=== PATIENT | female | born 1940 | race Caucasian/White ===

== ENCOUNTER 2016-12-23 07:33 | Inpatient (IN) ==
--- NOTE | 2016-12-22 21:47 | Discharge Summary ---
<SadafDorota L - Last Filed: 12/22/16 21:45> Date of Encounter: 12/22/16 - Discharge Diagnosis (1) Left rotator cuff tear arthropathy Priority: Primary Status: Acute (2) Status post total replacement of left shoulder Priority: Primary Status: Acute (3) HTN (hypertension) Priority: Secondary Status: Acute Qualifiers: Hypertension type: essential hypertension Qualified Code(s): I10 - Essential (primary) hypertension (4) DMII (diabetes mellitus, type 2) Priority: Secondary Status: Chronic Qualifiers: Diabetes mellitus complication status: without complication Diabetes mellitus assisted insulin use: unspecified assisted insulin use status Qualified Code(s): E11.9 - Type 2 diabetes mellitus without complications (5) HLD (hyperlipidemia) Priority: Secondary Status: Chronic Qualifiers: Hyperlipidemia type: pure hypercholesterolemia Qualified Code(s): E78.00 - Pure hypercholesterolemia, unspecified; E78.0 - Pure hypercholesterolemia - Discharge Medications Home Medications: Celecoxib [Celebrex] 200 mg PO DAILY 12/23/16 [History] Cholecalciferol (D-3) [Vitamin D] 2,000 unit PO DAILY 12/23/16 [History] Cyanocobalamin (B-12) [Vitamin B12] 1,000 mcg IM QMONTH 12/23/16 [History] Losartan/Hydrochlorothiazide [Hyzaar 100-25 Tablet] 1 each PO DAILY 12/23/16 [ History] Lovastatin 40 mg PO DAILY 12/23/16 [History] Metformin HCl [Fortamet] 500 mg PO BID 12/23/16 [History] Tramadol HCl [Ultram] 50 mg PO QID PRN 12/23/16 [History] Allergies/Adverse Reactions: Allergies No Known Allergies Allergy (Verified 12/23/16 08:03) Primary care physician: Daphnie Bundy, - Patient Status Disposition: Home Health Service Condition: Good - Discharge Instructions Follow Up With: Daphnie Bundy MD [Primary Care Provider] - - Hospital Course Hospital course: Ms. Reynolds is a 76 year old female - Time Spent with Patient Total time spent providing and/or coordinating discharge services: <Jules Ayala - Last Filed: 12/24/16 06:52> Date of Encounter: 12/24/16 Time of Encounter: 06:51 - Discharge Diagnosis (1) Left rotator cuff tear arthropathy Priority: Primary Status: Chronic (2) Status post total replacement of left shoulder Priority: Primary Status: Acute (3) HTN (hypertension) Priority: Secondary Status: Chronic Qualifiers: Hypertension type: essential hypertension Qualified Code(s): I10 - Essential (primary) hypertension (4) HLD (hyperlipidemia) Priority: Secondary Status: Chronic Qualifiers: Hyperlipidemia type: pure hypercholesterolemia Qualified Code(s): E78.00 - Pure hypercholesterolemia, unspecified; E78.0 - Pure hypercholesterolemia Primary care physician: Daphnie Bundy, - Patient Status Functional capacity at discharge: independent ambulation Overall status at discharge: patient is progressing back to baseline - Hospital Course Hospital course: Ms. Reynolds is a 76 year old female Status post left total shoulder replacement The patient had an uneventful postoperative course. They received antibiotics and physical therapy and were discharged in stable condition. There will follow -up in the office in 2 weeks. - Time Spent with Patient Total time spent providing and/or coordinating discharge services:
--- NOTE | 2016-12-23 08:02 | History & Physical Report ---
Date of Encounter: 12/23/16 Time of Encounter: 08:01 24 Hour HP Update - Instructions Instructions: If the History and Physical is less than 30 days old and was completed prior to A.M. admission and or procedure and has NOT been updated on calendar day of procedure please complete this update prior to performing procedure. - Update Patient reports changes in Medical Condition: No Changes in examination, assessment, or condition: No Changes in Medication: No Preop tests/diagnostics Reviewed: Yes Surgery Remains Indicated: Yes Consent for Planned Operative Procedure(s) Verified: Yes - Pre-Operative Checklist Preoperative Checklist Indicated: No Prophylactic Antibiotic Ordered: Yes Is VTE Prophylaxis Indicated?: Yes
[2016-12-23] MEDS ORDERED: Lidocaine -MPF 1% 2 ML VIAL ID ONE (08:05)
[2016-12-23] MEDS ORDERED: CeFAZolin Pre 2,000 MG/100 ML 2,000 MG/100 ML BAG IVPB ONE (08:05)
[2016-12-23] MEDS ORDERED: Ringers Solution, Lactated 1,000 ML IVC SCH ×2 (08:15→11:38)
[2016-12-23] MEDS ORDERED: Famotidine 20 MG/2 ML VIAL IVP ONE (08:24)
--- NOTE | 2016-12-23 08:52 | Anesthesia Evaluation PreOp ---
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: Denies Any Significant HX Other Medical History: Diabetes Type II Anesthesia History: No Prior Anesthetic Complications : No Alcohol Use: none Drug use: none Medications and Allergies Celecoxib [Celebrex] 200 mg PO DAILY 12/23/16 [History] Cholecalciferol (D-3) [Vitamin D] 2,000 unit PO DAILY 12/23/16 [History] Losartan/Hydrochlorothiazide [Hyzaar 100-25 Tablet] 1 each PO DAILY 12/23/16 [ History] Lovastatin 40 mg PO ONCE 12/23/16 [History] Metformin HCl [Fortamet] 500 mg PO BIDWM 12/23/16 [History] Tramadol HCl [Ultram] 50 mg PO QID PRN 12/23/16 [History] Allergies No Known Allergies Allergy (Verified 12/23/16 08:03) - Meds/Allergy Pre-op Review Medications Reviewed: Yes Allergies Reviewed: Yes Beta Blockers on Current Med List: No Anesthesia Results - Labs Laboratory Tests 12/20/16 12/20/16 12:53 12:53 Hgb 12.7 Hct 40.5 Plt Count 259 Sodium 142 Potassium 4.2 BUN 16 Creatinine 1.29 H - Imaging EKG: report reviewed (SR) Additional studies: LVEF 60% Anesthesia Exam O2 Sat Height 1.5 m Height 1.5 m Weight 76.204 kg Weight 76.204 kg O2 Sat by Pulse Oximetry 93 Vital Signs Temp Pulse Resp BP Pulse Ox 98.3 F 77 18 138/70 93 12/23/16 07:55 12/23/16 07:55 12/23/16 07:55 12/23/16 07:55 12/23/16 07:55 Height: 4'11 Weight: 168 lbs NPO (# of Hours): MN Pain Scale: 0 - HEENT Pupil (Motor): Pupils equal, EOMI Mallampati: III Teeth: Edentulous Oral Opening: Less than or equal to 3 - HONING MACHINE SET UP OPERATOR TOOL LOC: Oriented, Confused HONING MACHINE SET UP OPERATOR TOOL Motor: Normal RUE, Normal LUE, Normal RLE, Normal LLE, Normal Face HONING MACHINE SET UP OPERATOR TOOL Sensory: Normal: RUE, LUE, RLE, LLE, Face - Cardiac Rhythm: Regular Murmur: None JVD: No Carotid Bruit: No - Pulmonary Breath Sounds: bilateral Clear Respiratory Effort: Symmetrical Anesthesia Assess/Plan ASA Score: 3 (HTN DM) Modified Riley Scale for Level of Consciousness: Cooperative, oriented, and tranquil Anesthetic Plan: General, Regional Monitoring Plan: Standard Monitors Recovery Plan: PACU (Discussed GA and RA, agrees toproceed)
[2016-12-23] MEDS ORDERED: Tetracaine/PF 20 MG/2 ML AMPUL ONE (09:02)
[2016-12-23] MEDS ORDERED: ROPIVACAINE HCL/PF 0.5% 30 ML VIAL ONE (09:02)
[2016-12-23] MEDS ORDERED: Acetaminophen IV 1,000 MG/100 ML INFUS..BTL ONE (09:03)
--- NOTE | 2016-12-23 09:22 | Anesthesia Procedures ---
Date of Encounter: 12/23/16 Time of Encounter: 09:10 Procedures: Anesthesia - Nerve Block Procedure Date: 12/23/16 Time: 09:10 Allergies/Adv Reactions: nka Pre-op Diagnosis: left shoulder arthropathy Surgical Procedure: left total shoulder reverse Checklist: Correct Patient Identifier, Correct procedure, History checked (time out with Dr Landis) Correct side: Left Blood Thinner: No Monitor Applied: EKG, BP, Pulse Oximetry Supplemental Oxygen via Nasal Cannula (L/min): 2 Sedation: Versed (mg): 1 Sedation: Fentanyl (mcg): 50 Indication: Post Op Analgesia Pre-op Neuro Deficits: No Block Type: Supraclavicular Catheter placed: No Sterile Technique: Yes Ultrasound used: Yes Anatomy identified: Yes Visual spread of Local: Yes Neuro Stimulation: No Blood on Needle Aspiration: No Smooth Injection of Local: Yes Prep: Chlorhexadine Needle: 22 x 50 mm Stimuplex Local: 0.25% Bupivicaine w/Clonidine 20 mcg/cc (20 ml used for supracervical, and biceps), Ropivacaine (0.5 % 30 ml with 20 mg tetracaine for supraclavicular) Volume (cc): 50 Number of Attempts: 1 Complications: None/effective block Vitals: 3 Vital Signs Time 0910 0915 BP 170/103 158/91 Pulse 71 71 Resp 16 14 O2 Sat 97 97
[2016-12-23] MEDS ORDERED: *HR* Propofol 200 MG/20 ML VIAL IVP ONE (09:31)
[2016-12-23] MEDS ORDERED: Dexamethasone 4 MG/ML VIAL ONE (09:31)
[2016-12-23] MEDS ORDERED: *HR* FentaNYL (PF) 100 MCG/2 ML VIAL ONE (09:31)
[2016-12-23] MEDS ORDERED: Lidocaine -MPF 2% 2 ML VIAL ONE (09:31)
[2016-12-23] MEDS ORDERED: Lidocaine -MPF 4% 5 ML AMPUL ONE (09:31)
[2016-12-23] MEDS ORDERED: *HR* Midazolam HCl 2 MG/2 ML VIAL ONE (09:31)
[2016-12-23] MEDS ORDERED: *HR* Labetalol 20 MG/4 ML SYRINGE IVP PRN (09:32)
[2016-12-23] MEDS ORDERED: Ondansetron 4 MG/2 ML VIAL IVP ONE (09:32)
[2016-12-23] MEDS ORDERED: *HR* HYDROmorphone (PF) 1 MG/ML SYRINGE IVP PRN ×2 (09:32→11:38)
--- NOTE | 2016-12-23 10:33 | Orthopedic Operative Note ---
Date of procedure: 12/23/16 Pre-op diagnosis: Left shoulder cuff tear arthropathy Post-op diagnosis: same Procedure: Procedure: Total Shoulder Replacment Reverse, left Estimated blood loss: 100 cc Hardware: Metal and polyethylene replacement: Arthrex small glenoid baseplate, 2 4.5 screws. 1 6.5 screw, 36+4 glenosphere, 6 humeral stem, poly insert 3 Exam Under anesthesia: Full motion and stability Procedural Notes: Irreparable tear supraspinatus and subscapularis Operative procedure: The patient was brought to the operating room and placed on the operating room table. After general anesthesia was administered the operative shoulder was examined. Findings were noted. The patient was placed in the modified beachchair position. All pressure points were padded appropriately. And the head was stabilized in the neutral position. The operative extremity was prepped and draped in the sterile surgical fashion. The patient received IV antibiotics prior to skin incision. A standard deltopectoral approach was made to the operative shoulder. Incision was made to the skin and subcutaneous tissue,hemo stasis was obtained with Bovie cautery. Using careful blunt dissection the cephalic vein was identified and mobilized medially. The deltopectoral interval was developed and the clavipectoral fascia was incised. The subscap was irreparable. The humerus was dislocated patient noted to have irreparable tear supraspinatus tendon, and the humeral cut was made along the anatomic neck. Anterior and posterior Bankart retractors were placed to expose the glenoid. The glenoid guide was seated and the centering hole was made. It was reamed with the appropriate reamer. The small baseplate was seated and secured with (2) 4.5 screws and one 6.5 screw. The baseplate was irrigated and dried and the 36+4 Glenosphere was seated and secured with the Gardner taper. The Gardner taper was tested and found to be secure the humerus was redislocated and prepared with the diaphyseal reamers, followed by a broaching process up to the appropriate size 6 in the patient's anatomic version. The metaphyseal reamer was then utilized. Trial reduction found the shoulder to be relocatable. Trial components were removed and The appropriate 6 stem was impacted in place in the patient's anatomic version. Trial reduction found the shoulder to be relocatable and stable with the appropriate 3. Trial component was removed and the real implant was seated and secured the shoulder was reduced. The shoulder had excellent motion and excellent stability and no evidence of dislocation. The deep tissue was irrigated with pulse irrigation. The PA closed the shoulder. The deltopectoral interval was closed with a running #1 PDS suture, subcutaneous tissue was irrigated and closed with 0 PDS suture, the skin was closed with Dermabond. The patient was placed in a sterile dressing, abduction brace and extubated. The patient was then transferred to the recovery room in stable condition. Anesthesia: GILLES Surgeon: Jules Ayala Bag Maker: Aria Ramirez Condition: stable Disposition: PACU
[2016-12-23] MEDS ORDERED: EPHEDrine 50 MG/ML VIAL ONE (10:41)
[2016-12-23 11:20] LABS: Hemoglobin 11.8 g/dL (11.5-15.4)
[2016-12-23] MEDS ORDERED: Sennosides 8.6 MG TABLET PO PRN (11:38)
[2016-12-23] MEDS ORDERED: MOM Conc 10 ML UD.LIQ PO PRN (11:38)
[2016-12-23] MEDS ORDERED: D5% in Water 1,000 ML IVC PRN (11:38)
[2016-12-23] MEDS ORDERED: Naloxone 0.4 MG/ML INJ IVP PRN (11:38)
[2016-12-23] MEDS ORDERED: Temazepam 15 MG CAPSULE PO PRN (11:38)
[2016-12-23] MEDS ORDERED: *HR* Dextrose 50 % in Water (Syg) 50 ML SYRINGE IVP PRN (11:38)
[2016-12-23] MEDS ORDERED: *HR* OxyCODONE Immed Rel 5 MG TABLET PO PRN (11:38)
[2016-12-23] MEDS ORDERED: Ondansetron 4 MG/2 ML VIAL IVP PRN (11:38)
[2016-12-23] MEDS ORDERED: Dextrose Gel 15 GM PO PRN ×2 (11:38)
--- NOTE | 2016-12-23 11:57 | Anesthesia Evaluation Post Op ---
Date of Encounter: 12/23/16 Time of Encounter: 11:45 - Vital Signs Vital Signs: Vital Signs/O2 Sat/Glucose, Most Current Temp Pulse Resp BP Pulse Ox 12/23/16 11:39 96.6 F L 69 14 131/74 98 12/23/16 11:25 97.8 F 84 16 125/78 98 12/23/16 11:15 81 18 123/68 98 12/23/16 11:05 84 21 141/69 97 12/23/16 10:55 97.8 F 105 20 128/68 99 12/23/16 09:30 66 20 166/85 95 12/23/16 09:15 68 20 158/91 97 12/23/16 09:05 63 24 170/103 96 - Lungs Lungs: Clear Ascult./Percussion - Airway Airway: Non-obstructed - Cardiovascular Regular Rate - Mental Status Mental Status: Alert & Oriented, Answers Appropriately - Pain Pain Scale: 0 - Nausea Vomiting Nausea Vomiting: Not Present - Hydration Hydration: Ice chips - Discharge PostOp Status: Transfer Patient to floor
[2016-12-23] MEDS: ceFAZolin 2,000 MG in D5% in Water 100 ML IVPB SCH ×2 (16:39→23:27)
[2016-12-23] MEDS: *HR* Metformin 500 MG TABLET PO SCH (16:39)
[2016-12-23] MEDS ORDERED: *HR* Enoxaparin 30 MG/0.3 ML SYRINGE SQ SCH ×3 (18:00)
[2016-12-23] MEDS ORDERED: Insulin LISPRO 300 UNITS/3 ML VIAL SQ SCH ×2 (21:00)
[2016-12-23] MEDS: *HR* OxyCODONE Immed Rel 5 MG TABLET PO PRN (23:28)
[2016-12-24 05:29] LABS: Hematocrit 32.4 % (35.3-44.9); Hemoglobin 10.8 g/dL (11.5-15.4)
--- NOTE | 2016-12-24 06:53 | Orthopedics Progress Note ---
Date of Encounter: 12/24/16 Time of Encounter: 06:52 - Assessment and Plan (1) Left rotator cuff tear arthropathy Current Visit: Yes Status: Chronic (2) Status post total replacement of left shoulder Current Visit: Yes Status: Acute (3) HTN (hypertension) Current Visit: Yes Status: Chronic Qualifiers: Hypertension type: essential hypertension Qualified Code(s): I10 - Essential (primary) hypertension (4) HLD (hyperlipidemia) Current Visit: Yes Status: Chronic Qualifiers: Hyperlipidemia type: pure hypercholesterolemia Qualified Code(s): E78.00 - Pure hypercholesterolemia, unspecified; E78.0 - Pure hypercholesterolemia Subjective Interval history: Patient was seen this morning doing well without complaints. Afebrile vital signs stable. Operative extremity: Neurovascularly intact Dressing clean dry and intact Calves nontender Assessment and plan: Continue with postoperative care Hematocrit 32 discharged today Objective Vital signs: Vital Signs Temp Pulse Resp BP Pulse Ox 12/24/16 04:24 98.4 F 82 21 118/77 95 12/24/16 00:21 98.0 F 82 15 110/70 95 12/23/16 20:00 97.7 F 73 17 126/65 91 12/23/16 14:37 97.7 F 66 20 106/55 97 12/23/16 13:40 97.5 F L 60 18 119/65 95 12/23/16 12:42 97.5 F L 58 20 108/65 95 12/23/16 12:14 97 12/23/16 12:13 97.5 F L 63 20 117/66 97 12/23/16 11:39 96.6 F L 69 14 131/74 98 12/23/16 11:25 97.8 F 84 16 125/78 98 12/23/16 11:15 81 18 123/68 98 12/23/16 11:05 84 21 141/69 97 12/23/16 10:55 97.8 F 105 20 128/68 99 12/23/16 09:30 66 20 166/85 95 12/23/16 09:15 68 20 158/91 97 12/23/16 09:05 63 24 170/103 96 12/23/16 07:55 98.3 F 77 18 138/70 93 Intake and Output 12/23/16 12/23/16 12/24/16 15:59 23:59 07:59 Intake Total 100 / 100 100 / 100 240 / 240 Output Total 100 / 100 Balance 0 / 0 100 / 100 240 / 240 Intake: IV Fluids 100 / 100 100 / 100 Ancef Premix 2,000 MG/100 100 / 100 ML 2,000 mg In 100 ml @ 200 mls/hr IVPB PREOP ONE Rx#:[id number] Ancef 2,000 MG In 100 / 100 Dextrose 5% 100 ML @ 200 mls/hr IVPB Q8HR SHERMAN Rx#: [id number] Oral 240 / 240 Output: Estimated Blood Loss 100 / 100 Other: # Voids 1 Weight 83.461 kg Blood Glucose* 166 216 Patient Weight 12/24/16 23:59 Weight 83.461 kg - Labs CBC & BMP: 12/24/16 04:33 Labs: Abnormal lab results Hgb 10.8 g/dL (11.5-15.4) L 12/24/16 04:33 Hct 32.4 % (35.3-44.9) L 12/24/16 04:33 POC Glucose 216 (58-89) H 12/23/16 22:31 - VTE Documentation of Mechanical Device: Venous foot pump, device Consult Discharge Plan - Plan Referrals: Daphnie Bundy MD [Primary Care Provider] -
[2016-12-24] MEDS: *HR* Metformin 500 MG TABLET PO SCH (08:24)
[2016-12-24] MEDS: *HR* OxyCODONE Immed Rel 5 MG TABLET PO PRN (08:30)
[2016-12-24] MEDS ORDERED: Celecoxib 200 MG CAPSULE PO SCH (09:00)
[2016-12-24] MEDS ORDERED: Losartan/HCTZ 50-12.5 TABLET PO SCH (09:00)
[2016-12-24] MEDS ORDERED: Cholecalciferol (D-3) 1,000 UNIT TABLET PO SCH (09:00)
--- NOTE | 2016-12-24 11:54 | Event Note ---
Date of Encounter: 12/24/16 Time of Encounter: 13:13 PCR - POD#1 - Left TSR-r Patient seen at bedside. Pain control: adequate Participating in PT. All questions and concerns addressed. Educated on use of incentive spirometer, ambulation, and hydration. Patient educated on post-operative restrictions and care. Addressed: all concerns D/C plan:. Home with HH today
--- NOTE | 2016-12-24 12:28 | Physician Discharge Referral ---
ExtendedCare Referral Info Transfer To: ECF Provider in Charge after Transfer: PCP Institutional Level of Care: Skilled - Diagnosis (1) Left rotator cuff tear arthropathy Priority: Primary Status: Chronic (2) Status post total replacement of left shoulder Priority: Primary Status: Acute (3) HTN (hypertension) Priority: Secondary Status: Chronic (4) DMII (diabetes mellitus, type 2) Priority: Secondary Status: Chronic (5) HLD (hyperlipidemia) Priority: Secondary Status: Chronic Expected Duration of Placement: < 30 days Prognosis: Good Aware of Diagnosis: Patient Aware of Prognosis: Patient - Transfer Medications Home Medications: Celecoxib [Celebrex] 200 mg PO DAILY 12/23/16 [History] Cholecalciferol (D-3) [Vitamin D] 2,000 unit PO DAILY 12/23/16 [History] Cyanocobalamin (B-12) [Vitamin B12] 1,000 mcg IM QMONTH 12/23/16 [History] Losartan/Hydrochlorothiazide [Hyzaar 100-25 Tablet] 1 each PO DAILY 12/23/16 [ History] Lovastatin 40 mg PO DAILY 12/23/16 [History] Metformin HCl [Fortamet] 500 mg PO BID 12/23/16 [History] Tramadol HCl [Ultram] 50 mg PO QID PRN 12/23/16 [History] Allergies/Adverse Reactions: Allergies No Known Allergies Allergy (Verified 12/23/16 08:03) - Respiratory Orders None Smoking Cessation: Smoking cessation has been advised. For more information, call the [place] Tobacco Quit Line at 1-076-ZTWW-NOW. - Ancillary Orders May use pressure relief devices daily prn, May go on EVA w/family/respon libertarian w /meds at nurse discretion PRN, May consult with Dentist, Corporate Responsibility Officer, Structural Steel Painter PRN - Mobility Orders Chair, Ambulate - Rehabiliation Orders Rehab Potential: Good Rehab Orders: ROM Exercises, Evaluation for Physical Therapy, Evaluation for Occupational Therapy - Treatments Skin tear care topically daily PRN per policy List/Other: Shoulder Precautions x 6 weeks. Apply cold therapy wrap 3-6x/day for 20 minutes at a time. Encourage ambulation throughout the day and incentive spirometer 10x/hour. Elevate affected extremity above heart as tolerated. NWB to affected upper extremity. Will remove brace at first post-operative appointment. OK to remove during PT/ OT. - Diet Orders Regular CERTIFICATION: I certify that the transfer of the above named patient to an Extended Care Facility is necessary for the continuing treatment of the diagnosis listed. The above information is true and accurate reflection of patient's current condition. Confidential - Redisclosure prohibited without a patient's written consent.
[2016-12-24 12:32] VITALS: BP 109/71
--- NOTE | 2016-12-24 12:50 | Physician Discharge Referral ---
Home Health/Hosp Referral Info Transfer to: Home Health Attending Provider: Provider in Charge Post Discharge: PCP - Diagnosis (1) Left rotator cuff tear arthropathy Priority: Primary Status: Chronic (2) Status post total replacement of left shoulder Priority: Primary Status: Acute (3) HTN (hypertension) Priority: Secondary Status: Chronic (4) DMII (diabetes mellitus, type 2) Priority: Secondary Status: Chronic (5) HLD (hyperlipidemia) Priority: Secondary Status: Chronic - Respiratory Orders None Smoking Cessation: Smoking cessation has been advised. For more information, call the [place] Tobacco Quit Line at 1-275-QEGR-NOW. - Dressing/Wound Care Type of Dressing/Treatments w/Frequency: Shoulder Precautions x 6 weeks. Apply cold therapy wrap 3-6x/day for 20 minutes at a time. Encourage ambulation throughout the day and incentive spirometer 10x/hour. Elevate affected extremity above heart as tolerated. NWB to affected upper extremity. Will remove brace at first post-operative appointment. OK to remove during PT/ OT. - Diet/Nutrition Diet/Nutrition Orders: Regular - Activity Activity Orders: Up ad yomi, Ambulate - Services Needed Following services are medically necessary services: Nursing, Physical Therapy, Occupational Therapy - Transfer Medications Home Medications: Celecoxib [Celebrex] 200 mg PO DAILY 12/23/16 [History] Cholecalciferol (D-3) [Vitamin D] 2,000 unit PO DAILY 12/23/16 [History] Cyanocobalamin (B-12) [Vitamin B12] 1,000 mcg IM QMONTH 12/23/16 [History] Losartan/Hydrochlorothiazide [Hyzaar 100-25 Tablet] 1 each PO DAILY 12/23/16 [ History] Lovastatin 40 mg PO DAILY 12/23/16 [History] Metformin HCl [Fortamet] 500 mg PO BID 12/23/16 [History] Tramadol HCl [Ultram] 50 mg PO QID PRN 12/23/16 [History] Allergies/Adverse Reactions: Allergies No Known Allergies Allergy (Verified 12/23/16 08:03) Certification: Further, I certify that my clinical findings support that this patient is homebound (i.e. absences from home require considerable and taxing effort and are for medical reasons or jain services or infrequently or short duration when for other reasons) because: Homebound Reason: Post-surgery restriction and or conditions limit ability to leave home Attestation: My signature below is to certify that this patient is under my care and that I, or nurse practitioner, or a physician's emergency room physician assistant working with me, has a face-to -face encounter with this patient.
== END 2016-12-24 15:08 | disposition home health service (06) | DRG 483 ==
LOC: SAMDAY 07:33 → 3NENU 11:38
PROVIDERS: ADMIT Orthopaedic Surgery; ATTEND Orthopaedic Surgery